=== PATIENT | female | born 1965 | race Caucasian/White ===

== ENCOUNTER → 2022-07-16 | Emergency (ER) | payer OTHER ==
[~2022-07-16] VITALS: Ht 152.4 cm; Wt 61.7 kg
[~2022-07-16] MED LIST: ATORVASTATIN CA10 MG PO; CITALOPRAM HBR10 MG PO; RAMIPRIL2.5 MG PO
== END | disposition home or self-care (01) ==
LOC: ER 20:56
DX: N30.90 Cystitis, unspecified without hematuria (principal)

== ENCOUNTER 2024-12-09 12:30 | Inpatient (IN) | payer OTHER ==
[~2024-12-09] VITALS: Ht 152.4 cm; Wt 50.8 kg
[2024-12-09 14:10] LABS: COVID-19 AG NEGATIVE (NEGATIVE)
[2024-12-09 14:54] VITALS: BP 134/85
[2024-12-09 15:09] LABS: RH POSITIVE
[2024-12-15] MEDS ORDERED: CEFAZOLIN SODIUM 1,000 MG VIAL ONE ×3 (11:10→15:51)
[2024-12-15] MEDS ORDERED: METRONIDAZOLE/SODIUM CHLORIDE 500 MG/100 ML PIGGYBACK IV ONE (11:10)
[2024-12-15] MEDS ORDERED: POVIDONE-IODINE 118 ML BOTT TOP ONE (11:22)
[2024-12-15] MEDS ORDERED: VISTASEAL DUAL APPICATOR 1 EACH APPL TOP ONE (13:15)
[2024-12-15] MEDS ORDERED: THROMBIN,HU/FIBRINOGEN/CALCIUM 10 ML SYRINGE TOP ONE (13:16)
[2024-12-15] MEDS ORDERED: THROMBIN,HU/FIBRINOGEN/CALCIUM 4 ML SYRINGE TOP ONE (13:16)
[2024-12-15] MEDS ORDERED: MORPHINE SULFATE 4 MG/ML CARTRIDGE IV PRN (14:45)
[2024-12-15] MEDS ORDERED: RINGERS SOLUTION,LACTATED 1,000 ML IV SCH (14:45)
[2024-12-15] MEDS ORDERED: ONDANSETRON HCL 2 MG/ML VIAL IV PRN (14:45)
[2024-12-15] MEDS ORDERED: OxyCODONE HCL 5 MG TABLET (ROXICODONE) PO PRN (14:45)
[2024-12-15] MEDS ORDERED: MORPHINE SULFATE 4 MG/ML VIAL IV ONE (15:00)
[2024-12-15] MEDS ORDERED: ENALAPRILAT DIHYDRATE 1.25 MG/ML VIAL IV PRN (15:30)
[2024-12-15 15:53] LABS: BASO % 0.2 % (0.1-1.2); EOS # 0.02 (0.04-0.54); EOS % 0.2 % (0.7-7.0); HEMATOCRIT 33.4 % (34.1-44.9); HEMOGLOBIN 11.4 g/dL (11.2-15.7); LYMPH # 0.91 (1.18-3.74); LYMPH % 8.5 % (19.3-53.1); MEAN CORPUSCULAR HEMOGLOBIN 30.5 pg (25.6-32.2); MONO # 0.41 (0.24-0.82); MONO % 3.8 % (4.7-12.5); NEUT # 9.35 (1.56-6.13); PLATELET COUNT 212 K/uL (163-369); RED BLOOD COUNT 3.74 M/uL (3.93-5.22); RED CELL DISTRIBUTION WIDTH 13.4 % (11.6-14.4)
[2024-12-15 16:05] LABS: POTASSIUM 3.83 mEq/L (3.5-5.1)
[2024-12-15 16:07] LABS: CALCIUM 8.6 mg/dL (8.5-10.1)
[2024-12-15 16:08] LABS: ALBUMIN 3.2 gm/dL (3.4-5.0)
[2024-12-15 16:11] LABS: CREATININE SERUM 0.7 mg/dL (0.55-1.02); GFR 85.65; PHOSPHOROUS 3.2 mg/dL (2.5-4.9)
[2024-12-15] MEDS ORDERED: SIMETHICONE 125 MG CAPSULE PO SCH (17:00)
[2024-12-15] MEDS ORDERED: CEFAZOLIN SODIUM 1,000 MG VIAL IV SCH (17:00)
[2024-12-15] MEDS ORDERED: GABAPENTIN 300 MG CAPSULE PO SCH (17:00)
[2024-12-15 17:34] VITALS: BP 130/80
[2024-12-15 17:48] VITALS: BP 130/80
[2024-12-15] MEDS ORDERED: KETOROLAC TROMETHAMINE 30 MG VIAL IM SCH (18:00)
[2024-12-15] MEDS ORDERED: FAMOTIDINE/PF 20 MG/2 ML VIAL IV PUSH SCH (21:00)
[2024-12-16 01:10] VITALS: BP 122/77; O2SAT 97
[2024-12-16 05:59] LABS: ALBUMIN 2.8 gm/dL (3.4-5.0); CALCIUM 8.2 mg/dL (8.5-10.1); CREATININE SERUM 0.52 mg/dL (0.55-1.02); GFR 120.69; PHOSPHOROUS 3.6 mg/dL (2.5-4.9); POTASSIUM 3.87 mEq/L (3.5-5.1)
[2024-12-16 06:14] LABS: BASO % 0.1 % (0.1-1.2); HEMATOCRIT 31.4 % (34.1-44.9); HEMOGLOBIN 10.6 g/dL (11.2-15.7); LYMPH # 0.93 (1.18-3.74); LYMPH % 13.1 % (19.3-53.1); MEAN CORPUSCULAR HEMOGLOBIN 30.5 pg (25.6-32.2); MONO # 0.47 (0.24-0.82); MONO % 6.6 % (4.7-12.5); NEUT # 5.66 (1.56-6.13); NEUT % 79.9 % (34.0-71.1); PLATELET COUNT 206 K/uL (163-369); RED BLOOD COUNT 3.47 M/uL (3.93-5.22); RED CELL DISTRIBUTION WIDTH 13.4 % (11.6-14.4)
[2024-12-16] MEDS ORDERED: TRAMADOL HCL 50 MG TABLET PO PRN (08:15)
[2024-12-16] MEDS ORDERED: KETOROLAC TROMETHAMINE 30 MG VIAL IV PRN (08:15)
[2024-12-16] MEDS ORDERED: ENOXAPARIN SODIUM 40 MG/0.4 ML SYRINGE SUBCUTANEO SCH (09:00)
[2024-12-16 10:02] VITALS: BP 100/65
[2024-12-16 16:31] VITALS: BP 96/63; O2SAT 97
[2024-12-17 01:33] VITALS: BP 106/71; O2SAT 92
[2024-12-17 09:00] VITALS: BP 123/80
== END 2024-12-17 10:11 | disposition home or self-care (01) | DRG 743 ==
LOC: OB/GYN 12-15 06:46 → O/R 12-15 06:46 → OB/GYN 12-15 12:30
PROVIDERS: ADMIT Obstetrics & Gynecology Gynecologic Oncology; ATTEND Obstetrics & Gynecology Gynecologic Oncology
PROC: 07BC0ZZ Excision of Pelvis Lymphatic, Open Approach (ICD-10-PCS; 2024-12-15)
PROC: 0UT70ZZ Resection of Bilateral Fallopian Tubes, Open Approach (ICD-10-PCS; 2024-12-15)
PROC: 0UT20ZZ Resection of Bilateral Ovaries, Open Approach (ICD-10-PCS; 2024-12-15)
PROC: 0UT90ZZ Resection of Uterus, Open Approach (ICD-10-PCS; principal; 2024-12-15 18:15)
DX: D25.1 Intramural leiomyoma of uterus (principal); D36.0 Benign neoplasm of lymph nodes; D27.1 Benign neoplasm of left ovary; N84.0 Polyp of corpus uteri